=== PATIENT | male | born 1955 | race Caucasian/White ===

== ENCOUNTER 2022-01-14 11:27 | Day surgery (SDC) | payer MEDICARE, SELFPAY ==
[2022-01-14 12:02] VITALS: BP 135/76; PULSE 78; RESP 16; TEMP 37; O2SAT 100; BMI 27.2
[2022-01-14] MEDS: Lactated Ringers 1,000 ML 15 ML IV (12:10)
[2022-01-14] MEDS: Cefazolin 2 GM in 0.9% Normal Saline 100 ML IV (12:28)
--- NOTE | 2022-01-14 13:45 | PCM.HP.STD ---
HPI - General HPI Narrative SEGUNDO BARTON, is a 66 M who presents for laser of a large bladder stone. PFSH Medical History Anemia Bladder stone COPD (chronic obstructive pulmonary disease) History of edema History of stress test Hyperglycemia On home oxygen therapy Positive colorectal cancer screening using Cologuard test Rectal bleeding Shortness of breath on exertion Smoker Wears dentures Home Medications Spiriva Respimat 1 puff INHALATION DAILY 01/09/22 [History Last Taken 01/14/22] furosemide [Lasix] 20 mg PO DAILY 01/09/22 [History Last Taken Unknown] potassium chloride [K-Tab] 10 meq PO DAILY 01/09/22 [History Last Taken Unknown] tamsulosin [Flomax] 0.4 mg PO DAILY 01/09/22 [History Last Taken Unknown] Allergy/AdvReac Type Severity Reaction Status Date / Time No Known Allergies Allergy Verified 01/14/22 11:55 Family History Father Heart failure Surgical History History of cystoscopy Hx of repair of right rotator cuff Social History Smoking Status: Current every day smoker tobacco type: cigarettes Vital Signs Vital Signs Vital Signs: 01/14/22 12:02 Temperature 98.6 F Temperature Source Temporal Pulse Rate 78 Respiratory Rate 16 Respiratory Pattern Normal Blood Pressure 135/76 H Blood Pressure Mean 95 Blood Pressure Source Monitor Blood Pressure Position Semi-Fowlers Blood Pressure Location Right Arm Pulse Ox 100 Oxygen Delivery Method Nasal Cannula Oxygen Flow Rate (L/min) 4 Weight Weight: 79 kg Body Mass Index (BMI) 27.2
--- NOTE | 2022-01-14 13:45 | PCM.DC ---
Discharge Instructions Diet Discharge Diet: No restrictions Activity Discharge Activity: Return to Normal Activity and May Not Drive (while taking narcotic pain medications.) Dressing / Incision Call your doctor if you observe: Fever of 101 or Higher Follow Up Care Please Follow Up With: Jak Powell MD When: Call [phone] for an appointment Test Results: Test results from this visit will be discussed in further detail at your follow-up appointment, if applicable. Discharge Plan Admission Primary Reason for Your Visit: laser bladder stone Attending Provider: Jak Powell Primary Care Provider: Radha Kelley Discharge Orders/Prescriptions Prescriptions: Continued potassium chloride [K-Tab] 10 mEq Tablet Extended Release 10 meq PO DAILY RF: 0 tamsulosin [Flomax] 0.4 mg Capsule 0.4 mg PO DAILY RF: 0 furosemide [Lasix] 20 mg Tablet 20 mg PO DAILY RF: 0 Spiriva Respimat 2.5 mcg/actuation Mist 1 puff INHALATION DAILY RF: 0 Referrals / Follow Up: Radha Kelley MD [Primary Care Provider] - Jak Powell MD [STAFF PHYSICIAN] - Disposition Disposition (needs filled in before D/C Order can be placed): Home, Self Care
--- NOTE | 2022-01-14 13:46 | PCM.OPRPT ---
Report of Operation Pre-Operative Diagnosis: large bladder stone 5cm Post-Operative Diagnosis: same Surgery/Procedure Performed:: cystolithalopaxy with a laser Description of Surgical Findings:: Patient was taken back to the operating room after smooth induction of general anesthesia. The urethra and genitals were prepped and draped in usual sterile fashion. Went into the bladder using a 24 Setswana cystoscope. We used the laser bridge through the scope for continuous irrigation. Then using the laser bridge we introduced a laser fiber into the bladder and the stone in the bladder was trapped against the back wall. The stone measured about 5cm in size and also had some other stone around the main stone. Prostate was enlarged and obstructive but today I will not do a TURP per the patient wish he know the bladder stone can come back. The stone was then lasered using laser lithotripsy the small little pieces all the pieces were evacuated on the bladder. After all the stones were removed then the scope was removed there was minimal bleeding. CPT 58081 Surgeon: Sherry Type of Anesthesia: General Drains: none Admit VTE Documentation VTE Present on Admission: No VTE Mechan Device Prophylaxis: SCD's VTE Pharm Prophylaxis ordered?: No
[2022-01-14 13:56] VITALS: BP 135/76; BP 136/63; PULSE 77; RESP 16; TEMP 36.4; O2SAT 100
[2022-01-14 14:00] VITALS: BP 135/76; BP 139/79; PULSE 79; RESP 16; O2SAT 100
[2022-01-14 14:15] VITALS: BP 135/76; BP 140/75; PULSE 70; RESP 16; O2SAT 100
[2022-01-14 14:32] VITALS: BP 133/76; BP 135/76; PULSE 67; RESP 16; TEMP 36.4; O2SAT 100
[2022-01-14 15:20] VITALS: BP 112/68; BP 135/76; PULSE 74; RESP 16; TEMP 36.5; O2SAT 99
[2022-01-14] MEDS: Acetaminophen 325 MG Tablet 650 MG PO (15:29)
== END 2022-01-14 15:45 | disposition home or self-care (01) ==
LOC: SDC 11:30 → AC 11:31
PROVIDERS: PCP Internal Medicine; Visit Provider Urology
PROC: (CPT 52318; principal; 2022-01-14 13:15)
DX: N21.0 Calculus in bladder (principal); J44.9 Chronic obstructive pulmonary disease, unspecified; F17.210 Nicotine dependence, cigarettes, uncomplicated; Z99.81 Dependence on supplemental oxygen
CPT/HCPCS: 52318; 00910; J7120; J2405